=== PATIENT | male | born 1970 | race Caucasian/White ===

== ENCOUNTER 2017-04-04 18:21 | Emergency (ER) | payer OTHER ==
[~2017-04-04] VITALS: Ht 154.9 cm; Wt 48.5 kg
[2017-04-04] MEDS ORDERED: IV NORMAL SALINE 1,000ML 1,000 ML IV ONE (19:00)
--- NOTE | 2017-04-04 19:20 | RAD ---
Indication: Headache and dizziness for 2 days. TECHNIQUE: CT head without IV contrast COMPARISON: None FINDINGS: No pathologic extra-axial or intra-axial fluid collection. No acute intracranial bleed. The ventricles and basal cisterns are within normal limits. No focal loss of patterson-white differentiation. No calvarial lesions. Visualized paranasal sinuses and mastoid air cells are clear. Visualized orbits within normal limits. IMPRESSION: No acute intracranial process on this noncontrast CT. Electronically signed by: Melvin Saucedo DO (04/04/2017 7:17 PM) [facility]
[2017-04-04 20:11] LABS: BASO # 0.1 x10^3/uL (0.0-0.2); BASO % 1 % (0-3); EOS # 0.1 x10^3/uL (0.0-0.7); EOS % 2 % (0-3); HEMATOCRIT 47.1 % (39.0-53.0); HEMOGLOBIN 16.3 g/dL (13.0-17.5); LYMPH # 1.4 x10^3/uL (1.0-4.8); LYMPH % 21 % (24-48); MEAN CORPUSCULAR HEMOGLOBIN 33 pg (25-35); MEAN CORPUSCULAR HGB CONC 35 g/dL (31-37); MEAN CORPUSCULAR VOLUME 96 fL (79-100); MONO # 0.4 x10^3/uL (0.0-1.1); MONO % 7 % (0-9); NEUT # 4.6 x10^3uL (1.8-7.7); NEUT % 70 % (31-73); PLATELET COUNT 272 x10^3/uL (140-400); RED BLOOD COUNT 4.91 x10^6/uL (4.30-5.70); RED CELL DISTRIBUTION WIDTH 13.2 % (11.5-14.5); WHITE BLOOD COUNT 6.6 x10^3/uL (4.0-11.0)
[2017-04-04 20:26] LABS: ALBUMIN 3.4 g/dL (3.4-5.0); ALBUMIN/GLOBULIN RATIO 0.7 (1.0-1.7); CALCIUM 9.5 mg/dL (8.5-10.1); CREATININE 0.8 mg/dL (0.7-1.3); GFR 103.2; MAGNESIUM 1.6 mg/dL (1.8-2.4); POTASSIUM 4.1 mmol/L (3.5-5.1); TOTAL BILIRUBIN 0.3 mg/dL (0.2-1.0); TOTAL PROTEIN 8.2 g/dL (6.4-8.2)
--- NOTE | 2017-04-04 21:21 | PHYS DOC ---
Past History Past Medical History: Diabetes Past Surgical History: No Surgical History Alcohol Use: None Drug Use: None Adult General Chief Complaint Chief Complaint: WEAKNESS/GENERALIZED HPI HPI Patient is a 46 year old male who presents with dizziness & near syncope. The patient presents by EMS after he visited a neighbor & had near syncopal episode. He states he had onset of lightheadedness, unsure if he actually lost consciousness but denies fall or trauma. he reports dull generalized headache today, denies sudden onset or worst headache of his life. Reports nausea. Denies fevers/chills, vision changes, neck stiffness, chest pain, palpitations, shortness of breath, vomiting, diarrhea, extremity numbness, weakness, or swelling. History of diabetes otherwise denies past medical history. He took insulin just before he went to his neighbor's house, reports compliance with diabetic meds but unsure exactly what he takes & states 350 is "a good glucose for me." PCP is Dr. Berman but he wasn't sure where to find his doctor after the clinic was relocated to the hospital. Review of Systems Review of Systems Constitutional: Denies fever or chills Eyes: Denies change in visual acuity HENT: Denies nasal congestion or sore throat Respiratory: Denies cough or shortness of breath Cardiovascular: Denies chest pain or edema GI: Reports nausea. Denies abdominal pain, vomiting, bloody stools or diarrhea : Denies dysuria or hematuria Musculoskeletal: Denies back pain or joint pain Integument: Denies rash or skin lesions Neurologic: Denies headache, focal weakness or sensory changes All other systems were reviewed and found to be within normal limits, except as documented in this note. Current Medications Current Medications Current Medications Medications (Trade) Dose Ordered Sig/Mahi Start Time Stop Time Status Last Admin Dose Admin Sodium Chloride 1,000 ml @ 1,000 mls/hr 1X ONCE 04/04/17 19:00 04/04/17 20:01 DC 04/04/17 19:30 1,000 MLS/HR Allergies Allergies Allergies Coded Allergies Type Severity Reaction Last Updated Verified No Known Drug Allergies 04/04/17 No Physical Exam Physical Exam Constitutional: Well developed, well nourished, no acute distress, non-toxic appearance. HENT: Normocephalic, atraumatic, bilateral external ears normal, oropharynx moist, nose normal. Eyes: PERRLA, EOMI, conjunctiva normal, no discharge. Neck: supple, no stridor. no midline c-spine tenderness, no meningismus. Cardiovascular: RRR, no murmurs, no edema. Lungs & Thorax: LCTAB, no wheezing, no respiratory distress. Abdomen: soft, nontender, nondistended. Skin: Warm, dry, no erythema, no rash. Back: No tenderness. Extremities: No tenderness, no edema. Neurologic: Alert and oriented X 3, cranial nerves 2-12 grossly intact, symmetric strength/sensation to upper & lower extremities, no focal deficits noted. Psychologic: Affect normal, judgement normal, mood normal. Current Patient Data Vital Signs Vital Signs Date Time Temp Pulse Resp B/P (MAP) Pulse Ox O2 Delivery O2 Flow Rate FiO2 04/04/17 20:00 81 20 146/86 (106) 100 Room Air 04/04/17 18:21 98.6 Lab Results Laboratory Tests Test 04/04/17 18:52 04/04/17 19:25 Glucose (Fingerstick) 358 mg/dL (70-99) H White Blood Count 6.6 x10^3/uL (4.0-11.0) Red Blood Count 4.91 x10^6/uL (4.30-5.70) Hemoglobin 16.3 g/dL (13.0-17.5) Hematocrit 47.1 % (39.0-53.0) Mean Corpuscular Volume 96 fL (79-100) Mean Corpuscular Hemoglobin 33 pg (25-35) Mean Corpuscular Hemoglobin Concent 35 g/dL (31-37) Red Cell Distribution Width 13.2 % (11.5-14.5) Platelet Count 272 x10^3/uL (140-400) Neutrophils (%) (Auto) 70 % (31-73) Lymphocytes (%) (Auto) 21 % (24-48) L Monocytes (%) (Auto) 7 % (0-9) Eosinophils (%) (Auto) 2 % (0-3) Basophils (%) (Auto) 1 % (0-3) Neutrophils # (Auto) 4.6 x10^3uL (1.8-7.7) Lymphocytes # (Auto) 1.4 x10^3/uL (1.0-4.8) Monocytes # (Auto) 0.4 x10^3/uL (0.0-1.1) Eosinophils # (Auto) 0.1 x10^3/uL (0.0-0.7) Basophils # (Auto) 0.1 x10^3/uL (0.0-0.2) Sodium Level 132 mmol/L (136-145) L Potassium Level 4.1 mmol/L (3.5-5.1) Chloride Level 95 mmol/L (98-107) L Carbon Dioxide Level 25 mmol/L (21-32) Anion Gap 12 (6-14) Blood Urea Nitrogen 8 mg/dL (8-26) Creatinine 0.8 mg/dL (0.7-1.3) Estimated GFR (Cockcroft-Gault) 103.2 BUN/Creatinine Ratio 10 (6-20) Glucose Level 359 mg/dL (70-99) H Calcium Level 9.5 mg/dL (8.5-10.1) Magnesium Level 1.6 mg/dL (1.8-2.4) L Total Bilirubin 0.3 mg/dL (0.2-1.0) Aspartate Amino Transferase (AST) 11 U/L (15-37) L Alanine Aminotransferase (ALT) 12 U/L (16-63) L Alkaline Phosphatase 68 U/L (46-116) Troponin I Quantitative < 0.017 ng/mL (0-0.055) HW-Rnd-U-Type Natriuretic Peptide 50 pg/mL (0-124) Total Protein 8.2 g/dL (6.4-8.2) Albumin 3.4 g/dL (3.4-5.0) Albumin/Globulin Ratio 0.7 (1.0-1.7) L Ethyl Alcohol Level < 10 mg/dL (0-10) EKG EKG Interpreted by me: Normal sinus rhythm rate 86, no acute ST or T wave changes, normal intervals, no ectopy.[] Radiology/Procedures Radiology/Procedures PROCEDURE: CT HEAD WO CONTRAST Indication: Headache and dizziness for 2 days. TECHNIQUE: CT head without IV contrast COMPARISON: None FINDINGS: No pathologic extra-axial or intra-axial fluid collection. No acute intracranial bleed. The ventricles and basal cisterns are within normal limits. No focal loss of patterson-white differentiation. No calvarial lesions. Visualized paranasal sinuses and mastoid air cells are clear. Visualized orbits within normal limits. IMPRESSION: No acute intracranial process on this noncontrast CT. Electronically signed by: Melvin Saucedo DO (04/04/2017 7:17 PM) [facility] DICTATED AND SIGNED BY: MELVIN SAUCEDO DO DATE: 04/04/171914 CXR: interpreted by me: no cardiomegaly, no infiltrate, no pneumothorax, no acute process.[] Course & Med Decision Making Course & Med Decision Making Pertinent Labs and Imaging studies reviewed. (See chart for details) The patient presents with syncope. He states he feels much better upon arrival. Vitals as above. Glucose was elevated on accucheck. Gave IV fluids. Obtained labs, EKG, CXR, head CT. He had hyperglycemia without DKA, no serious abnormalities otherwise. Discussed with patient, offered admission for syncope of unknown cause, for further cardiac monitoring & additional testing as indicated. The patient declines admission, states he feels much better & wants to leave right away. Recommend that he rest, drink fluids, take diabetic meds exactly as prescribed, keep a log of blood glucose checks. Follow up with primary care in 2-3 days (we provided contact information for Dr. Berman's new office), come back for recurrence of syncope, severe chest pain, shortness of breath, palpitations, uncontrolled vomiting, focal neuro deficit, any otherwise worsening condition. Discharged home in stable condition. [] Dragon Disclaimer Dragon Disclaimer This electronic medical record was generated, in whole or in part, using a voice recognition dictation system. Departure Departure: Impression: Primary Impression: Syncope Additional Impression: Hyperglycemia Disposition: 01 HOME, SELF-CARE Condition: STABLE Referrals: NETO BERMAN DO (PCP) Patient Instructions: Hyperglycemia, [id number], Syncope, [id number] Additional Instructions: You were seen in the emergency department today. Your tests here showed high blood sugar but otherwise no serious findings. We offered admission to the hospital for further monitoring but you chose to go home. We did not find an explanation for your symptoms so it is very important to follow up with your primary care doctor in 2-3 days. You might need additional testing. Your glucose was high; take diabetic medications exactly as prescribed & keep a log. Come back for recurrence of fainting, chest pain, palpitations, shortness of breath, uncontrolled vomiting, numbness or weakness on 1 side of your body, any otherwise worsening condition. Problem Qualifiers Primary Impression: Syncope Syncope type: unspecified Qualified Codes: R55 - Syncope and collapse JOSE LIN MD Apr 04, 2017 21:21
[2017-04-04 21:30] VITALS: BP 127/74
--- NOTE | 2017-04-04 23:50 | EKG ---
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
--- NOTE | 2017-04-05 08:29 | RAD ---
Single view chest 04/04/2017 Clinical indication: Dizziness. Comparison: None. Findings: Cardiac and mediastinal silhouettes are unremarkable. No pleural effusion, pneumothorax or focal consolidation. Calcified atheromatous disease of the thoracic aortic arch. Impression: No acute cardiopulmonary abnormality.
== END 2017-04-04 21:40 | disposition home or self-care (01) ==
LOC: ER 18:21
DX: R55 Syncope and collapse (principal); R51 Headache; E11.65 Type 2 diabetes mellitus with hyperglycemia; Z79.4 Long term (current) use of insulin
CPT/HCPCS: 36415; 70450; 71045; 80053; 82947; 83735; 83880; 84484; 85025; 85610; 93005; 96360; G0480; 99285-25; J7030

== ENCOUNTER → 2018-08-29 | Outpatient (CLI) | payer OTHER ==
[2018-08-29 09:52] LABS: CALCIUM 9.5 mg/dL (8.5-10.1); CREATININE 0.9 mg/dL (0.7-1.3); GFR 89.3; POTASSIUM 4.9 mmol/L (3.5-5.1)
[2018-08-29] MEDS: IOHEXOL 300 MG/ML 75 ML VIAL. IV ONE (10:19)
--- NOTE | 2018-08-29 13:21 | RAD ---
Examination: VENOUS LOWER EXT BILATERAL History: Left lower extremity lump. Inflammation. Comparison/Correlation: None EXAMINATION: VENOUS LOWER EXT BILATERAL FINDINGS: Bilateral lower extremity duplex venous ultrasound exam was performed. Grayscale, color Doppler, and spectral Doppler imaging was performed. Compression and augmentation was performed. The right common femoral vein, superficial femoral vein, popliteal vein, and greater saphenous vein are normal with no evidence of deep venous thrombus. Visualized calf veins are unremarkable. Normal compressibility and augmentation is evident. The left common femoral vein, superficial femoral vein, popliteal vein, and greater saphenous vein are normal with no evidence of deep venous thrombus. Visualized calf veins are unremarkable. Normal compressibility and augmentation is evident. At the left lateral calf deep to the skin, there is a 0.8 cm x 0.7 cm x 0.3 cm curvilinear hypoechoic structure which is nonvascular. IMPRESSION: At the site of the reported palpable abnormality, there is a hypoechoic structure which may represent a fluid loculation or scar. No flow evident within it or about it. No evidence of deep venous thrombus involving the lower extremities. Electronically signed by: Brock Driver MD (08/29/2018 1:19 PM) [id number]
--- NOTE | 2018-08-29 13:35 | RAD ---
CLINICAL HISTORY: Left neck mass COMPARISON: None available. TECHNIQUE: Multidetector helical CT with axial 3 mm scans and coronal and sagittal reconstructed images was obtained from the skull base to the aortic arch after administration of IV contrast. PQRS compliance statement - One or more of the following individualized dose reduction techniques were utilized for this study: 1. Automated exposure control 2. Adjustment of the mA and/or kV according to patient size 3. Use of iterative reconstruction technique FINDINGS: Images through the skull base and cavernous sinuses are unremarkable. The orbits are unremarkable. The paranasal sinuses and mastoid air cells are unremarkable. The nasopharynx, oral pharynx and oral cavity including the floor of the mouth and tongue are unremarkable. The hypopharynx including the epiglottis, vallecula and pyriform sinuses are unremarkable. The larynx, vocal cords and subglottic airways are unremarkable/patent. A radiopaque BB is seen overlying the left parotid gland denoting site of palpable abnormality. Subjacent to this radiopaque BB is a 2.1 x 1.9 cm hypodense mass within the superficial parotid measuring fat density consistent with lipoma. No thick internal septations or nodularity is seen. Submandibular glands are unremarkable. The thyroid gland is unremarkable. The carotid arteries and jugular veins are patent. With associated atherosclerotic calcifications. There is no evidence of pathologically enlarged lymph nodes. The osseous structures are unremarkable. Biapical emphysematous changes are seen. IMPRESSION: 2.1 cm fat-containing lesion within the superficial portion of the left parotid gland is consistent with lipoma. Electronically signed by: Vinayak Grande MD (08/29/2018 1:32 PM) [facility]
== END | disposition home or self-care (01) ==
LOC: CT 08:19
PROVIDERS: ATTEND Surgery
DX: K11.8 Other diseases of salivary glands (principal); I87.8 Other specified disorders of veins; J43.9 Emphysema, unspecified; I65.23 Occlusion and stenosis of bilateral carotid arteries
CPT/HCPCS: 36415; 70491; 80048; 93970; Q9967

== ENCOUNTER 2019-04-11 15:20 | Emergency (ER) | payer OTHER ==
[~2019-04-11] VITALS: Ht 160 cm; Wt 64.6 kg
[2019-04-11 15:31] VITALS: BP 151/77
[2019-04-11 16:15] LABS: BASO % 0 % (0-3); EOS % 0 % (0-3); HEMATOCRIT 45.1 % (39.0-53.0); HEMOGLOBIN 15.3 g/dL (13.0-17.5); LYMPH # 1.4 x10^3/uL (1.0-4.8); LYMPH % 22 % (24-48); MEAN CORPUSCULAR HEMOGLOBIN 33 pg (25-35); MEAN CORPUSCULAR HGB CONC 34 g/dL (31-37); MEAN CORPUSCULAR VOLUME 96 fL (79-100); MONO # 0.6 x10^3/uL (0.0-1.1); MONO % 9 % (0-9); NEUT # 4.4 x10^3uL (1.8-7.7); NEUT % 69 % (31-73); PLATELET COUNT 173 x10^3/uL (140-400); RED BLOOD COUNT 4.71 x10^6/uL (4.30-5.70); RED CELL DISTRIBUTION WIDTH 13.2 % (11.5-14.5); WHITE BLOOD COUNT 6.4 x10^3/uL (4.0-11.0)
[2019-04-11 16:30] LABS: CREATININE 0.9 mg/dL (0.7-1.3); GFR 89.3; POTASSIUM 4.2 mmol/L (3.5-5.1)
[2019-04-11] MEDS ORDERED: ONDANSETRON PF 4 MG/2 ML VIAL. IVP ONE (16:30)
[2019-04-11] MEDS ORDERED: IV NORMAL SALINE 1,000ML 1,000 ML IV ONE (16:30)
[2019-04-11] MEDS ORDERED: FAMOTIDINE 20 MG/2 ML VIAL IVP ONE (16:30)
[2019-04-11 16:46] LABS: ALBUMIN 2.9 g/dL (3.4-5.0); ALBUMIN/GLOBULIN RATIO 0.6 (1.0-1.7); TOTAL BILIRUBIN 0.5 mg/dL (0.2-1.0)
--- NOTE | 2019-04-11 17:05 | EKG ---
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
[2019-04-11 18:39] LABS: BARBITURATES NEG (NEG); BENZODIAZEPINES NEG (NEG); CANNABINOIDS NEG (NEG); COCAINE NEG (NEG); METHADONE NEG (NEG); OPIATES NEG (NEG); PHENCYCLIDINE NEG (NEG)
[2019-04-11] MEDS ORDERED: HYOS0.1265 SL (18:39)
[2019-04-11] MEDS ORDERED: FAMO-63 PO (18:39)
[2019-04-11] MEDS ORDERED: ONDA4TAB12 PO (18:39)
--- NOTE | 2019-04-11 18:39 | PHYS DOC ---
Past History Past Medical History: Diabetes Past Surgical History: No Surgical History Additional Smoking Information: used to smoke 3ppd until he decreased to 1ppd 4 yrs ago. has been smoking sincea age 3 Alcohol Use: None Drug Use: None Adult General Chief Complaint Chief Complaint: ABNORMAL LABS [facility] HPI Patient is a [age] year old [sex] who presents with [] Review of Systems Review of Systems Constitutional: Denies fever or chills [] Eyes: Denies change in visual acuity, redness, or eye pain [] HENT: Denies nasal congestion or sore throat [] Respiratory: Denies cough or shortness of breath [] Cardiovascular: No additional information not addressed in HPI [] GI: Denies abdominal pain, nausea, vomiting, bloody stools or diarrhea [] : Denies dysuria or hematuria [] Musculoskeletal: Denies back pain or joint pain [] Integument: Denies rash or skin lesions [] Neurologic: Denies headache, focal weakness or sensory changes [] Endocrine: Denies polyuria or polydipsia [] All other systems were reviewed and found to be within normal limits, except as documented in this note. Current Medications Current Medications Current Medications Medications (Trade) Dose Ordered Sig/Mahi Start Time Stop Time Status Last Admin Dose Admin Famotidine (Pepcid Vial) 20 mg 1X ONCE 04/11/19 16:30 04/11/19 16:31 DC 04/11/19 16:31 20 MG Ondansetron HCl (Zofran) 4 mg 1X ONCE 04/11/19 16:30 04/11/19 16:31 DC 04/11/19 16:30 4 MG Sodium Chloride 1,000 ml @ 1,000 mls/hr 1X ONCE 04/11/19 16:30 04/11/19 17:29 DC 04/11/19 16:30 1,000 MLS/HR Allergies Allergies Allergies Coded Allergies Type Severity Reaction Last Updated Verified No Known Drug Allergies 04/11/19 No Physical Exam Physical Exam Constitutional: Well developed, well nourished, no acute distress, non-toxic appearance. [] HENT: Normocephalic, atraumatic, bilateral external ears normal, oropharynx moist, no oral exudates, nose normal. [] Eyes: PERRLA, EOMI, conjunctiva normal, no discharge. [] Neck: Normal range of motion, no tenderness, supple, no stridor. [] Cardiovascular:Heart rate regular rhythm, no murmur [] Lungs & Thorax: Bilateral breath sounds clear to auscultation [] Abdomen: Bowel sounds normal, soft, no tenderness, no masses, no pulsatile masses. [] Skin: Warm, dry, no erythema, no rash. [] Back: No tenderness, no CVA tenderness. [] Extremities: No tenderness, no cyanosis, no clubbing, ROM intact, no edema. [] Neurologic: Alert and oriented X 3, normal motor function, normal sensory function, no focal deficits noted. [] Psychologic: Affect normal, judgement normal, mood normal. [] Current Patient Data Vital Signs Vital Signs Date Time Temp Pulse Resp B/P (MAP) Pulse Ox O2 Delivery O2 Flow Rate FiO2 04/11/19 15:31 98.3 59 20 151/77 (101) 96 Room Air Lab Results Laboratory Tests Test 04/11/19 15:41 04/11/19 15:53 Glucose (Fingerstick) 298 mg/dL (70-99) H White Blood Count 6.4 x10^3/uL (4.0-11.0) Red Blood Count 4.71 x10^6/uL (4.30-5.70) Hemoglobin 15.3 g/dL (13.0-17.5) Hematocrit 45.1 % (39.0-53.0) Mean Corpuscular Volume 96 fL (79-100) Mean Corpuscular Hemoglobin 33 pg (25-35) Mean Corpuscular Hemoglobin Concent 34 g/dL (31-37) Red Cell Distribution Width 13.2 % (11.5-14.5) Platelet Count 173 x10^3/uL (140-400) Neutrophils (%) (Auto) 69 % (31-73) Lymphocytes (%) (Auto) 22 % (24-48) L Monocytes (%) (Auto) 9 % (0-9) Eosinophils (%) (Auto) 0 % (0-3) Basophils (%) (Auto) 0 % (0-3) Neutrophils # (Auto) 4.4 x10^3uL (1.8-7.7) Lymphocytes # (Auto) 1.4 x10^3/uL (1.0-4.8) Monocytes # (Auto) 0.6 x10^3/uL (0.0-1.1) Eosinophils # (Auto) 0.0 x10^3/uL (0.0-0.7) Basophils # (Auto) 0.0 x10^3/uL (0.0-0.2) Prothrombin Time 9.6 SEC (9.4-11.4) Prothrombin Time INR 0.9 (0.9-1.1) Activated Partial Thromboplast Time 28 SEC (23-33) Sodium Level 133 mmol/L (136-145) L Potassium Level 4.2 mmol/L (3.5-5.1) Chloride Level 95 mmol/L (98-107) L Carbon Dioxide Level 31 mmol/L (21-32) Anion Gap 7 (6-14) Blood Urea Nitrogen 14 mg/dL (8-26) Creatinine 0.9 mg/dL (0.7-1.3) Estimated GFR (Cockcroft-Gault) 89.3 BUN/Creatinine Ratio 16 (6-20) Glucose Level 302 mg/dL (70-99) H Calcium Level 9.0 mg/dL (8.5-10.1) Total Bilirubin 0.5 mg/dL (0.2-1.0) Aspartate Amino Transferase (AST) 19 U/L (15-37) Alanine Aminotransferase (ALT) 11 U/L (16-63) L Alkaline Phosphatase 54 U/L (46-116) Creatine Kinase 32 U/L (39-308) L Creatine Kinase MB (Mass) 0.5 ng/mL (0.0-3.6) Creatine Kinase MB Relative Index 1.6 % (0-4) Troponin I Quantitative < 0.017 ng/mL (0-0.055) Total Protein 8.0 g/dL (6.4-8.2) Albumin 2.9 g/dL (3.4-5.0) L Albumin/Globulin Ratio 0.6 (1.0-1.7) L Lipase 64 U/L (73-393) L Acetone Level Neg (NEG) EKG EKG @1614 NSR at 63bpm, NO ST elevation, QRS 86ms, QT/QTc 462/476ms, nonspecific t wave inversion V4-V6 Radiology/Procedures Radiology/Procedures [] Course & Med Decision Making Course & Med Decision Making Pertinent Labs and Imaging studies reviewed. (See chart for details) [] Dragon Disclaimer Dragon Disclaimer This electronic medical record was generated, in whole or in part, using a voice recognition dictation system. Departure Departure: Impression: Primary Impression: Nausea & vomiting Additional Impression: Hyperglycemia Disposition: 01 HOME, SELF-CARE Condition: IMPROVED Referrals: NOA ROCHE MD (PCP) Patient Instructions: Hyperglycemia, [id number]-[id number], Nausea and Vomiting, Rzrp-sj-[id number] Scripts Hyoscyamine Sulfate (LEVSIN-SL) 0.125 Mg Tab.subl 0.125 MG SL Q4-6HRS PRN for PAIN, #20 TAB Prov: JAYESH ARREOLA DO 04/11/19 Famotidine (PEPCID) 20 Mg Tablet 1 TAB PO BID for Gastritis, #10 TAB Prov: JAYESH ARREOLA DO 04/11/19 Ondansetron (ONDANSETRON ODT) 4 Mg Tab.rapdis 1 TAB PO PRN Q6-8HRS PRN for NAUSEA, #16 TAB Prov: JAYESH ARREOLA DO 04/11/19 Problem Qualifiers Primary Impression: Nausea & vomiting Vomiting type: unspecified Vomiting Intractability: intractable Qualified Codes: R11.2 - Nausea with vomiting, unspecified JAYESH ARREOLA DO Apr 11, 2019 18:39
[2019-04-11 18:41] LABS: AMPHETAMINE/METHAMPHETAMINE NEG (NEG)
[2019-04-11 19:03] LABS: BILIRUBIN,URINE NEG (NEG); CLARITY,URINE HAZY; COLOR,URINE AMBER; GLUCOSE,URINE >=1000 mg/dL (NEG); NITRITE,URINE NEG (NEG); UROBILINOGEN,URINE >=8.0 mg/dL (0.2 mg/dL)
[2019-04-11 19:04] LABS: BACTERIA,URINE MOD /HPF (0-FEW); GRANULAR CASTS,URINE OCC /HPF; HYALINE CASTS, URINE OCC /HPF; SQUAMOUS EPITHELIAL CELL,UR FEW /LPF; TRICHOMONAS,URINE PRESENT
== END 2019-04-11 18:45 | disposition home or self-care (01) ==
LOC: ER 15:20
DX: E11.65 Type 2 diabetes mellitus with hyperglycemia (principal); R11.2 Nausea with vomiting, unspecified; F17.200 Nicotine dependence, unspecified, uncomplicated
CPT/HCPCS: 36415; 80053; 80307; 81001; 82010; 82553; 82947; 83690; 84484; 85025; 85610; 85730; 87086; 93005; 96361; 96374; 96375; 99284; J2405; J3490; J7030

== ENCOUNTER 2020-05-04 13:43 | Emergency (ER) | payer OTHER ==
[~2020-05-04] VITALS: Ht 160 cm; Wt 59.0 kg
[~2020-05-04 13:43] MED LIST: FAMO-63 PO; HYOS0.1265 SL; ONDA4TAB12 PO
[2020-05-04] MEDS ORDERED: ONDANSETRON PF 4 MG/2 ML VIAL. IVP ONE (14:45)
[2020-05-04] MEDS ORDERED: IV NORMAL SALINE 1,000ML 1,000 ML IV ONE (14:45)
[2020-05-04 15:06] LABS: BASO % 0 % (0-3); EOS % 0 % (0-3); HEMATOCRIT 50.4 % (39.0-53.0); LYMPH # 0.8 x10^3/uL (1.0-4.8); LYMPH % 8 % (24-48); MEAN CORPUSCULAR HEMOGLOBIN 33 pg (25-35); MEAN CORPUSCULAR HGB CONC 34 g/dL (31-37); MEAN CORPUSCULAR VOLUME 97 fL (79-100); MONO % 9 % (0-9); NEUT # 9.4 x10^3uL (1.8-7.7); NEUT % 83 % (31-73); PLATELET COUNT 215 x10^3/uL (140-400); RED BLOOD COUNT 5.17 x10^6/uL (4.30-5.70); RED CELL DISTRIBUTION WIDTH 13.2 % (11.5-14.5); WHITE BLOOD COUNT 11.2 x10^3/uL (4.0-11.0)
--- NOTE | 2020-05-04 15:22 | RAD ---
EXAM: Chest, single view. HISTORY: Swelling. COMPARISON: 04/04/2017 FINDINGS: A frontal view of the chest is obtained. There is no infiltrate, pleural effusion or pneumo thorax. The heart is normal in size. IMPRESSION: No acute pulmonary finding. Electronically signed by: Ute Bush MD (05/04/2020 3:20 PM) [id number]
[2020-05-04 15:24] LABS: ALBUMIN 3.4 g/dL (3.4-5.0); ALBUMIN/GLOBULIN RATIO 0.6 (1.0-1.7); CALCIUM 9.8 mg/dL (8.5-10.1); CREATININE 1.3 mg/dL (0.7-1.3); GFR 58.2; MAGNESIUM 1.9 mg/dL (1.8-2.4); PHOSPHORUS 4.5 mg/dL (2.6-4.7); POTASSIUM 4.9 mmol/L (3.5-5.1); TOTAL BILIRUBIN 0.7 mg/dL (0.2-1.0)
--- NOTE | 2020-05-04 15:33 | PHYS DOC ---
Past History Past Medical History: Diabetes Past Surgical History: Other Additional Past Surgical Histo: I&D for "spider bites" Smoking: Cigarettes, Greater than 1 pack/day Alcohol Use: Sober Additional Alcohol Information: "Quit years ago", hx ETOH abuse Drug Use: None General Adult EDM: Chief Complaint: LOWER EXTREMITY SWELLING HPI: HPI: Patient is a 49-year-old male who presents with left leg pain. Patient states "I woke up this morning and noticed that my leg was swollen, purple, painful". Weak pedal pulses. Patient denies symptoms before today. Patient has a history of diabetes. "I have not taken my insulin for 2 days because it makes me sick to my stomach, and I have already been throwing up". Blood sugar was 643 on arrival. Patient is a poor historian and has compliance issues. Patient denies shortness of breath, fever. Patient's PCP is Dr. Arshad. Patient denies any other health history. Review of Systems: Review of Systems: Constitutional: Denies fever or chills Eyes: Denies change in visual acuity HENT: Denies nasal congestion or sore throat Respiratory: Denies cough or shortness of breath Cardiovascular: Denies chest pain or edema GI: Denies abdominal pain, nausea. Reports vomiting this morning. : Denies dysuria Musculoskeletal: Denies back pain, reporting left leg pain, swelling Integument: Denies rash Neurologic: Denies headache, focal weakness or sensory changes Endocrine: Denies polyuria or polydipsia Lymphatic: Denies swollen glands Psychiatric: Denies depression or anxiety Current Medications: Current Meds: Current Medications Medications (Trade) Dose Ordered Sig/[facility] Start Time Stop Time Status Last Admin Dose Admin Ondansetron HCl (Zofran) 4 mg 1X ONCE 05/04/20 14:45 05/04/20 14:46 DC 05/04/20 14:54 4 MG Sodium Chloride 1,000 ml @ 1,000 mls/hr 1X ONCE 05/04/20 14:45 05/04/20 15:44 05/04/20 14:53 1,000 MLS/HR Allergies: Allergies: Allergies Uncoded Allergies Type Severity Reaction Last Updated Verified STATES HE IS ALLERGIC TO "SOMETHING Allergy Unknown Rash 05/04/20 Physical Exam: PE: Constitutional: Well developed, well nourished, no acute distress, non-toxic appearance. [] HENT: Normocephalic, atraumatic, bilateral external ears normal, oropharynx moist, no oral exudates, nose normal. [] Eyes: PERRLA, EOMI, conjunctiva normal, no discharge. [] Neck: Normal range of motion, no tenderness, supple, no stridor. [] Cardiovascular:Heart rate regular rhythm, no murmur [] Lungs & Thorax: Bilateral breath sounds clear to auscultation [] Abdomen: Bowel sounds normal, soft, no tenderness, no masses, no pulsatile masses. [] Skin: Warm, dry, no erythema, no rash. [] Back: No tenderness, no CVA tenderness. [] Extremities: No tenderness, no cyanosis, no clubbing, ROM intact, no edema. [] Neurologic: Alert and oriented X 3, normal motor function, normal sensory function, no focal deficits noted. [] Psychologic: Affect normal, judgement normal, mood normal. [] Current Patient Data: Labs: Laboratory Tests Test 05/04/20 14:50 White Blood Count 11.2 x10^3/uL (4.0-11.0) H Red Blood Count 5.17 x10^6/uL (4.30-5.70) Hemoglobin 17.0 g/dL (13.0-17.5) Hematocrit 50.4 % (39.0-53.0) Mean Corpuscular Volume 97 fL (79-100) Mean Corpuscular Hemoglobin 33 pg (25-35) Mean Corpuscular Hemoglobin Concent 34 g/dL (31-37) Red Cell Distribution Width 13.2 % (11.5-14.5) Platelet Count 215 x10^3/uL (140-400) Neutrophils (%) (Auto) 83 % (31-73) H Lymphocytes (%) (Auto) 8 % (24-48) L Monocytes (%) (Auto) 9 % (0-9) Eosinophils (%) (Auto) 0 % (0-3) Basophils (%) (Auto) 0 % (0-3) Neutrophils # (Auto) 9.4 x10^3uL (1.8-7.7) H Lymphocytes # (Auto) 0.8 x10^3/uL (1.0-4.8) L Monocytes # (Auto) 1.0 x10^3/uL (0.0-1.1) Eosinophils # (Auto) 0.0 x10^3/uL (0.0-0.7) Basophils # (Auto) 0.0 x10^3/uL (0.0-0.2) POC Venous pH 7.32 (7.32-7.42) POC Venous pCO2 48 mmHg (41-51) POC Venous pO2 20 mmHg (20-40) Venous Blood HCO3 25 mmol/L (24-28) POC Venous O2 Saturation ([place]) 27 % POC FiO2 21 Sodium Level 130 mmol/L (136-145) L Potassium Level 4.9 mmol/L (3.5-5.1) Chloride Level 92 mmol/L (98-107) L Carbon Dioxide Level 27 mmol/L (21-32) Anion Gap 11 (6-14) Blood Urea Nitrogen 12 mg/dL (8-26) Creatinine 1.3 mg/dL (0.7-1.3) Estimated GFR (Cockcroft-Gault) 58.2 BUN/Creatinine Ratio 9 (6-20) Glucose Level 643 mg/dL (70-99) *H Calcium Level 9.8 mg/dL (8.5-10.1) Phosphorus Level 4.5 mg/dL (2.6-4.7) Magnesium Level 1.9 mg/dL (1.8-2.4) Total Bilirubin 0.7 mg/dL (0.2-1.0) Aspartate Amino Transferase (AST) 15 U/L (15-37) Alanine Aminotransferase (ALT) 18 U/L (16-63) Alkaline Phosphatase 137 U/L (46-116) H Total Protein 9.0 g/dL (6.4-8.2) H Albumin 3.4 g/dL (3.4-5.0) Albumin/Globulin Ratio 0.6 (1.0-1.7) L Vital Signs: Vital Signs Date Time Temp Pulse Resp B/P (MAP) Pulse Ox O2 Delivery O2 Flow Rate FiO2 05/04/20 14:56 106 18 108/80 (89) 96 Room Air 05/04/20 13:58 98.8 EKG: EKG: [] Radiology/Procedures: Radiology/Procedures: []EXAM: Chest, single view. HISTORY: Swelling. COMPARISON: 04/04/2017 FINDINGS: A frontal view of the chest is obtained. There is no infiltrate, pleural effusion or pneumothorax. The heart is normal in size. IMPRESSION: No acute pulmonary finding. Electronically signed by: Ute Bush MD (05/04/2020 3:20 PM) [id number] Heart Score: C/O Chest Pain: No Risk Factors: Risk Factors: DM, Current or recent (<one month) smoker, HTN, HLP, family history of CAD, obesity. Risk Scores: Score 0 - 3: 2.5% MACE over next 6 weeks - Discharge Home Score 4 - 6: 20.3% MACE over next 6 weeks - Admit for Clinical Observation Score 7 - 10: 72.7% MACE over next 6 weeks - Early Invasive Strategies Course & Med Decision Making: Course & Med Decision Making Pertinent Labs and Imaging studies reviewed. (See chart for details) [] Ultrasound positive for complete DVT. Consulted Dr. Maurer who wasnts to admit patient to for thrombectomy. Patient started on Heparin. Patient is hemodynamically stable. Patient understands he needs to be seen at and agrees with plan of care. Patient given morphine prior to transfer. Chest x-ray is negative for any acute abnormalities. Blood sugar is 643. Normal saline bolus given. Anion gap is 11. pH of 7.32. Given 10units of Inulin. Patients repeat BS 377. 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 Departure Departure: Impression: Primary Impression: Phlegmasia cerulea dolens of left lower extremity Disposition: 05 DC/TRF OTHER TYPE INSTITUTI Condition: STABLE Referrals: NOA ARSHAD MD (PCP) LAURITA RAMIREZ APRN May 04, 2020 15:33
--- NOTE | 2020-05-04 16:05 | EKG ---
[address] [address] Test Date: 2020-05-04 Test Time: 14:46:05 Pat Name: PATIENCE COX Department: Room: Gender: M Dishroom Attendant: PAYTON : 1970 Requested By: LAURITA RAMIREZ Order Number: [id number] Reading MD: Measurements Intervals [place] Rate: 113 P: 43 [place]: 142 QRS: -5 QRSD: 78 T: 15 QT: 326 QTc: 447 Interpretive Statements SINUS TACHYCARDIA LEFTWARD AXIS QRS(T) CONTOUR ABNORMALITY CONSISTENT WITH INFERIOR INFARCT PROBABLY OLD ABNORMAL ECG RI6.02 No previous ECG available for comparison
[2020-05-04] MEDS ORDERED: INSULIN REGULAR 100 UNIT/ML 3ML VIAL. IV ONE (16:15)
[2020-05-04] MEDS ORDERED: MORPHINE SULFATE 4 MG/ML DISP.SYRIN. IV ONE (16:15)
[2020-05-04 16:17] LABS: COLOR,URINE YELLOW
[2020-05-04 16:18] LABS: BACTERIA,URINE MOD /HPF (0-FEW); BILIRUBIN,URINE NEG (NEG); CLARITY,URINE CLOUDY; GLUCOSE,URINE >=1000 mg/dL (NEG); NITRITE,URINE NEG (NEG); RBC,URINE 0 /HPF (0-2); SQUAMOUS EPITHELIAL CELL,UR FEW /LPF; UROBILINOGEN,URINE 0.2 mg/dL (0.2 mg/dL); WBC,URINE OCC /HPF (0-4); YEAST,URINE PRESENT /HPF
[2020-05-04] MEDS ORDERED: HEPARIN 25,000UTS/250ML PREMIX 250 ML IV ONE ×2 (16:26→16:27)
[2020-05-04] MEDS ORDERED: HEPARIN 25,000UTS/250ML PREMIX 250 ML IV PRN (16:30)
[2020-05-04] MEDS ORDERED: HEPARIN for IV BOLUS 10,000 UNIT/10 ML VIAL. IV PRN ×2 (16:30)
[2020-05-04] MEDS ORDERED: HEPARIN for IV BOLUS 10,000 UNIT/10 ML VIAL. IV ONE ×2 (16:30→16:45)
--- NOTE | 2020-05-04 16:49 | RAD ---
INDICATION: Reason: left leg pain / Spl. Instructions: / History: COMPARISON: August 2018 TECHNIQUE: Grayscale, color and doppler ultrasound images were obtained of the left lower extremity v enous vasculature. LEFT: Thrombus is identified extending from the left common femoral vein through the superficial femoral ve in, popliteal vein and into the calf veins. Appears occlusive. IMPRESSION: * Extensive deep vein thrombosis is seen throughout the left leg deep venous system. Report called to the ER at 4:45 PM Electronically signed by: Bossman Ahn MD (05/04/2020 4:46 PM) [id number]
[2020-05-04 18:41] VITALS: BP 118/63
== END 2020-05-04 19:00 | disposition short-term general hospital (02) ==
LOC: ER 13:43
DX: I80.202 Phlebitis and thrombophlebitis of unspecified deep vessels of left lower extremity (principal); E11.9 Type 2 diabetes mellitus without complications; F17.210 Nicotine dependence, cigarettes, uncomplicated
CPT/HCPCS: 36415; 71045; 80053; 81001; 82010; 82803; 82947; 83735; 84100; 85025; 85610; 85730; 87086; 93005; 93971; 96361; 96365; 96366; 96375; 96376; 99285; J1644; J1815; J2270; J2405; J7030